=== PATIENT | female | born 1980 | race Caucasian/White ===

== ENCOUNTER 2025-02-12 09:53 | Emergency (ER) | payer MEDICARE ==
[2025-02-12] MEDS ORDERED: MORPHINE 4 MG/ML SYR ONE (10:03)
[2025-02-12] MEDS ORDERED: ONDANSETRON 4 MG/2 ML VIAL ONE (10:03)
[2025-02-12] MEDS ORDERED: NA CHLORIDE 0.9% 1,000 ML ONE (10:03)
[2025-02-12 10:22] LABS: Absolute Basophils 0.1 K/uL (0-0.5); Absolute Eosinophils 0.2 K/uL (0-0.5); Absolute Lymphocytes (CBC) 1.6 K/uL (0.7-4.9); Absolute Monocytes 0.7 K/uL (0.1-1.3); Absolute Neutrophil 10.7 K/uL (1.8-8.0); Basophils % 0.8 % (0-1.3); Eosinophils % 1.8 % (0-4.4); Hematocrit 41.5 % (36.0-45.0); Hemoglobin 14.2 g/dL (12.0-15.0); Lymphocytes % 12.2 % (15.3-44.8); MCH 34.1 pg (27.0-35.0); MCHC 34.2 g/dL (32.0-36.0); MCV 99.8 fL (80-100); MPV 8.3 fL (7.6-11.3); Neutrophils % 80.2 % (41.7-73.7); Nucleated Red Blood Cells % 0.1 % (0-0); Platelets 322 thou/uL (152-406); RBC Red Blood Cell Count 4.16 M/uL (3.86-4.86); Red Cell Distribution Width 12.9 % (12.1-15.2)
[2025-02-12 10:39] LABS: Albumin 3.9 g/dL (3.4-5.0); Albumin/Globulin Ratio 1.1 (1.1-1.8); Anion Gap 7.4 mEq/L (5.0-15.0); Bilirubin Total 0.4 mg/dL (0.2-1.0); Globulin 3.4 g/dL (2.3-3.5); Potassium 4.4 mEq/L (3.5-5.1); Protein, Total 7.3 g/dL (6.4-8.2)
--- NOTE | 2025-02-12 11:34 | RAD REPORT ---
EXAMINATION: CT ABDOMEN AND PELVIS WITH CONTRAST CLINICAL INDICATION: Abdominal pain TECHNIQUE: CT abdomen and pelvis was performed, after the administration of 100 cc Isovue-300.. Sagit trupti and coronal reconstructions were obtained. One or more of the following dose reduction techniques were used: Automated exposure control, adjustment of the mA and kV according to patient si ze, and iterative reconstruction. Unless otherwise specified, incidental findings do not require dedicated imaging follow-up. [id number]. Oral contrast was not given which limits evaluation of bowel and appendix. COMPARISON: .None FINDINGS: Pancreatic stent. Mild dilatation proximal pancreatic duct. Cholecystectomy with pneumobilia.. 9 mm density region distal common bile/pancreatic duct. Mild dilat ation of the biliary tree. 1 cm low to intermediate density lesion left lobe liver. The spleen, adrenals and kidneys unremarkable IUD within the uterus. 2 cm right ovarian cyst. No follow-up imaging recommended. No significant free fluid. No evidence of diverticulitis. Air bubble within the bladder could be the sequela of previous instrumentation. Infection can also re sult in this appearance. : IMPRESSION: 9 mm density in the region of the distal common bile/pancreatic duct. It is uncertain if this represe nts a portion of a previous stent or calcification. Mild dilatation of the biliary tree. This all could be chronic and the sequela of the cholecystectomy . As pathology can also result in this appearance this should be correlated clinically and with appropriate lab values. ERCP may be helpful for further evaluation. 1 cm low to intermediate density lesion liver. Nonemergent ultrasound recommended.
[2025-02-12 12:24] LABS: Urine Bacteria <20 /HPF (<20); Urine Bilirubin NEGATIVE (Negative); Urine Blood Negative (Negative); Urine Clarity Clear (Clear); Urine Color Light-Yellow (Yellow); Urine Glucose NEGATIVE (Negative); Urine Ketones NEGATIVE (Negative); Urine Micro Reflex YN NO BILL MICROSCOPIC; Urine Mucus Slight /HPF (None Seen); Urine Nitrite NEGATIVE (Negative); Urine Protein NEGATIVE (Negative); Urine RBC <5 /HPF (None Seen); Urine Urobilinogen Normal (Normal); Urine WBC <5 /HPF (<5); Urine pH 6.5 (5.0-7.0)
[2025-02-12 12:27] LABS: Specific Gravity > 1.030 (1.005-1.030)
[2025-02-12] MEDS ORDERED: HYDROCODONE/APAP 10/325 TAB ONE (12:51)
--- NOTE | 2025-02-12 12:57 | EDPHYS ---
Physician Documentation [facility] Name: Faustina Weinstein Age: 45 yrs Sex: Female : 1980 Arrival Date: 02/12/2025 Time: 09:53 Bed 18 Private MD: ED Physician Antonio Quesada HPI: 02/12 10:19 This 45 yrs old Female presents to ER via Ambulatory with complaints of Abdominal Pain. kb 10:19 Pt is a 45 year old female who presents for pain across lower abd that started at 0630 kb this morning. Denies n/v/d, fever. States she has had 8 abd surgeries in the past, but does not know the name of all of them. Most surgeries completed at [facility], last one at [place]. States she has had appendectomy, cholecystectomy, hernia repair. . 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 - Infectious Disease History:: Denies. - Social history:: Smoking status: Patient reports the use of cigarette tobacco products, smokes one-half pack cigarettes per day. ROS: 10:18 Constitutional: As per HPI kb Exam: 10:18 Constitutional: This is a well developed, well nourished patient who is awake, alert, kb and in no acute distress. Head/Face: Normocephalic, atraumatic. ENT: Moist Mucous membranes Cardiovascular: Regular rate Respiratory: Respirations even and unlabored. No increased work of breathing. Talking in full sentences Skin: Warm, dry with normal turgor. Normal color. MS/ Extremity: Pulses equal, no cyanosis. Neurovascular intact. Full, normal range of motion. Neuro: Awake and alert, GCS 15, oriented to person, place, time, and situation. 10:18 Abdomen/GI: Inspection: abdomen appears normal, Bowel sounds: normal, Palpation: soft, in all quadrants, mild abdominal tenderness, in the right upper quadrant and left upper quadrant, moderate abdominal tenderness, in the right lower quadrant and left lower quadrant, Vital Signs: 10:05 BP 132 / 86; Pulse 85; Resp 20; Temp 97.9(O); Pulse Ox 98% on R/A; Weight 67.59 kg; ss Height 5 ft. 7 in. ; Pain 10; 11:02 BP 111 / 79; Pulse 75; Resp 16; Pulse Ox 98% on R/A; mb9 13:05 BP 115 / 75; Pulse 70; Resp 18; Pulse Ox 100% on R/A; mb9 10:05 Body Mass Index 23.34 (67.59 kg, 170.18 cm) ss 10:05 Pain Scale: Adult ss MDM: 09:59 Medical Screening Exam initiated kb 10:19 Data reviewed: vital signs, nurses notes. Historians other than the Patient: jessenia Spouse/Significant Other: spouse. 12:57 Differential diagnosis: non-specific abd pain, urinary tract infection. 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 02/12 10:03 Order name: CBC with Diff; Complete Time: 10:32 kb 02/12 10:03 Order name: CMP; Complete Time: 10:41 kb 02/12 10:03 Order name: Lipase; Complete Time: 10:41 kb 02/12 10:11 Order name: UA W/ Microscopic; Complete Time: 12:30 ss 02/12 10:11 Order name: Test, Serum; Complete Time: 10:46 ss 02/12 10:03 Order name: CT Abd/Pelvis - IV Contrast Only; Complete Time: 11:48 kb 02/12 10:03 Order name: IV Saline Lock; Complete Time: 10:07 kb 02/12 10:03 Order name: Labs collected and sent; Complete Time: 10:07 kb Administered Medications: 10:12 Drug: Ondansetron IVP 4 mg IVP once; over 2 minutes Route: IVP; Site: right antecubital;mb9 11:03 Follow up: Response: No adverse reaction mb9 10:12 Drug: NS 0.9% IV 1000 ml IV at 1 bolus Per protocol; to be given as a bolus over 60 mb9 minutes Route: IV; Rate: 1 bolus; Site: right antecubital; 12:29 Follow up: Response: No adverse reaction; IV Status: Completed infusion mb9 10:15 Drug: morphine IVP or IV 4 mg IVP once over 4 mins Route: IVP; Infused Over: 4 mins; mb9 Site: right antecubital; 11:03 Follow up: Response: No adverse reaction mb9 12:56 Drug: [place] PO 10 mg-325 mg 1 tabs PO once Route: PO; mb9 13:11 Follow up: Response: No adverse reaction mb9 Disposition: 18:08 Co-signature as Attending Physician, Antonio Quesada MD I reviewed the patient's care rn provided by the Advanced Practice Provider and agree with the diagnosis and treatment plan. Disposition Summary: 02/12/25 12:57 Discharge Ordered Notes: Location: Home kb Condition: Stable kb Diagnosis - Lower abdominal pain, unspecified kb Followup: kb - With: Emergency Department - When: As needed - Reason: Worsening of condition Followup: kb - With: Private Physician - When: 2 - 3 days - Reason: Recheck today's complaints, Continuance of care, Re-evaluation by your physician Discharge Instructions: - Discharge Summary Sheet kb - Abdominal Pain, Adult, [id number] kb Forms: - Medication Reconciliation Form kb - Antibiotic Education kb - Prescription Opioid Use kb - Patient Portal Instructions kb - Leadership Thank You Letter kb Prescriptions: - dicyclomine 20 mg Oral tablet - take 1 tablet ORAL route 4 times per day As needed; 20 tablet; Refills: 0, kb Product Selection Permitted Signatures: Dispatcher [employer] Theresa Ramírez, BLAIRE EEO OFFICER-Antonio Maya MD MD rn Blanchard, Shelby, RN RN ss Wilkerson, Mary Beth, RN RN mb9
--- NOTE | 2025-02-12 12:57 | ER ---
Nurse's Notes [facility] Name: Faustina Weinstein Age: 45 yrs Sex: Female : 1980 Arrival Date: 02/12/2025 Time: 09:53 Bed 18 Private MD: Diagnosis: Lower abdominal pain, unspecified Presentation: 02/12 10:05 Chief complaint: Patient states: abd pain that began this morning. Denies N/V/D. ss Coronavirus screen: Client denies travel out of the [place] in the last 14 days. Ebola Screen: Patient denies exposure to infectious person. Patient denies travel to an Ebola-affected area in the 21 days before illness onset. Initial Sepsis Screen: Does the patient meet any 2 criteria? No. Patient's initial sepsis screen is negative. Does the patient have a suspected source of infection? No. Patient's initial sepsis screen is negative. Risk Assessment: Do you want to hurt yourself or someone else? Patient reports no desire to harm self or others. Onset of symptoms was February 12, 2025. 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 - Infectious Disease History:: Denies. - Social history:: Smoking status: Patient reports the use of cigarette tobacco products, smokes one-half pack cigarettes per day. Screenin:17 [facility] ED Fall Risk Assessment (Adult) History of falling in the last 3 months, mb9 including since admission No falls in past 3 months (0 pts) Confusion or Disorientation No (0 pts) Intoxicated or Sedated No (0 pts) Impaired Gait No (0 pts) Mobility Assist Device Used No (0 pt) Altered Elimination No (0 pt) Score/Fall Risk Level 0 - 2 = Low Risk Oriented to surroundings, Maintained a safe environment, Educated pt \T\ family on fall prevention, incl call for assistance when getting out of bed. Abuse screen: Denies threats or abuse. Nutritional screening: No deficits noted. Tuberculosis screening: No symptoms or risk factors identified. Assessment: 10:07 General: Appears uncomfortable, Behavior is anxious, crying. Pain: Complains of pain in mb9 abdomen. Neuro: Lenz Agitation-Sedation Scale (RASS): 0 - Alert and Calm Level of Consciousness is awake, alert, obeys commands, Oriented to person, place, time, situation, Appropriate for age. Cardiovascular: Heart tones S1 S2 present. Respiratory: Airway is patent Respiratory effort is even, unlabored, Respiratory pattern is regular, symmetrical, Breath sounds are clear bilaterally. GI: Abdomen is flat, non-distended, Bowel sounds present X 4 quads. Abd is soft Abdomen is tender to palpation in suprapubic area, right lower quadrant and left lower quadrant Patient currently denies diarrhea, nausea. : No signs and/or symptoms were reported regarding the genitourinary system. EENT: No signs and/or symptoms were reported regarding the EENT system. Derm: Skin is pink, warm \T\ dry. Musculoskeletal: Range of motion: intact in all extremities. 11:02 Reassessment: Patient and/or family updated on plan of care and expected duration. Pain mb9 level reassessed. Patient is alert, oriented x 3, equal unlabored respirations, skin warm/dry/pink. 12:48 Reassessment: No changes from previously documented assessment. Patient and/or family mb9 updated on plan of care and expected duration. Pain level reassessed. Patient is alert, oriented x 3, equal unlabored respirations, skin warm/dry/pink. Vital Signs: 10:05 BP 132 / 86; Pulse 85; Resp 20; Temp 97.9(O); Pulse Ox 98% on R/A; Weight 67.59 kg; ss Height 5 ft. 7 in. ; Pain 10/10; 11:02 BP 111 / 79; Pulse 75; Resp 16; Pulse Ox 98% on R/A; mb9 13:05 BP 115 / 75; Pulse 70; Resp 18; Pulse Ox 100% on R/A; mb9 10:05 Body Mass Index 23.34 (67.59 kg, 170.18 cm) ss 10:05 Pain Scale: Adult ss ED Course: 09:57 Patient arrived in ED. [email or web address] 09:58 Meagan Rao RN is Primary Nurse. mb9 09:59 Theresa Maher FNP-C is [facility]. kb 09:59 Antonio Quesada MD is Attending Physician. kb 09:59 Arm band placed on. mb9 10:06 Triage completed. ss 10:07 Initial lab(s) drawn, by me, sent to lab. Inserted saline lock: 20 gauge in right mb9 antecubital area, using aseptic technique. Blood collected. Flushed with 10 mL NS. 10:18 Placed in gown. Bed in low position. Call light in reach. Side rails up X 1. Provided mb9 Education on: press call light if needing anything. Client placed on continuous cardiac and pulse oximetry monitoring. NIBP monitoring applied. 11:[address] via stretcher. mb9 11:17 CT Abd/Pelvis - IV Contrast Only In Process Unspecified. EDMS 12:03 UA W/ Microscopic Sent. mb9 12:47 No provider procedures requiring assistance completed. IV discontinued, intact, mb9 bleeding controlled, No redness/swelling at site. Pressure dressing applied. Administered Medications: 10:12 Drug: Ondansetron IVP 4 mg IVP once; over 2 minutes Route: IVP; Site: right antecubital;mb9 11:03 Follow up: Response: No adverse reaction mb9 10:12 Drug: NS 0.9% IV 1000 ml IV at 1 bolus Per protocol; to be given as a bolus over 60 mb9 minutes Route: IV; Rate: 1 bolus; Site: right antecubital; 12:29 Follow up: Response: No adverse reaction; IV Status: Completed infusion mb9 10:15 Drug: morphine IVP or IV 4 mg IVP once over 4 mins Route: IVP; Infused Over: 4 mins; mb9 Site: right antecubital; 11:03 Follow up: Response: No adverse reaction mb9 12:56 Drug: [place] PO 10 mg-325 mg 1 tabs PO once Route: PO; mb9 13:11 Follow up: Response: No adverse reaction mb9 Medication: 10:18 VIS not applicable for this client. mb9 Outcome: 12:57 Discharge ordered by . kb 13:05 Discharged to home ambulatory, mb9 13:05 Condition: stable 13:05 Discharge instructions given to patient, Instructed on discharge instructions, follow up and referral plans. Demonstrated understanding of instructions, follow-up care, medications, Prescriptions given X 1, 13:11 Patient left the ED. mb9 Signatures: Dispatcher [employer] EDMS Gunnar, Theresa, ANALYTICS LEAD-C ANALYTICS LEAD-Ckb Emmy Tineo, RN RN ss Jalen, Meagan Wright RN RN mb9 Cassidy Telles 3
[2025-02-12 13:18] VITALS: TEMP 97.9
[2025-02-12 13:22] VITALS: BP 115/75; O2SAT 100
== END 2025-02-12 13:11 | disposition home or self-care (01) ==
LOC: ER 09:53
DX: R10.32 Left lower quadrant pain (principal); F17.210 Nicotine dependence, cigarettes, uncomplicated
CPT/HCPCS: 36415; 74177; 80053; 81001; 83690; 84703; 85025; 96361; 96374; 96375; 99285; J2405; J7030; Q9967